=== PATIENT | male | born 2000 | race Caucasian/White ===

== ENCOUNTER 2020-07-30 15:25 | Emergency (ER) | payer BC, SELFPAY ==
[2020-07-30 15:37] VITALS: BP 106/50; PULSE 90; RESP 16; TEMP 36.9; O2SAT 100
--- NOTE | 2020-07-30 15:54 | ED.URI ---
HPI - URI/Sore Throat General Chief Complaint: Upper Respiratory Infection Stated Complaint: Sore throat Time Seen by Provider: 07/30/20 15:54 Source: patient and RN notes reviewed Mode of arrival: ambulatory Limitations: no limitations History of Present Illness HPI Narrative: 19 year old male who [facility] with complaints of nausea and vomiting last evening X2 with complaints of sore throat and chills today. Patient states that he has been able to drink but he is unable to tolerate eating. Patient states that pain to his throat is a 6/10. Patient denies any cough, denies any nasal congestion or drainage or any ear pain. Patient states that he has had strep throat in the past. MD elicited complaint: sore throat Pertinent past history: other (previous strep) Onset (ago): day(s) (1) Consistency: constant Severity: moderate Pain scale (0-10): 6 Description of mucous: clear Able to tolerate fluids by mouth: Yes Exacerbating factors: swallowing Relieving factors: nothing Associated symptoms: chills and sore throat Treatments prior to arrival: none Related Data Allergies Allergy/AdvReac Type Severity Reaction Status Date / Time No Known Allergies Allergy Verified 10/03/17 13:12 Review of Systems Review of Systems: Narrative: CONSTITUTIONAL: Denies fever, chills, or sweats. EYES: Denies visual changes, redness, or discharge. ENT: Denies rhinorrhea, congestion, positive sore throat, no otalgia. CARDIOVASCULAR: Denies chest pain, palpitations, or edema. RESPIRATORY: Denies cough or dyspnea. GASTROINTESTINAL: Denies abdominal pain, positive nausea, and vomiting, denies diarrhea. GENITOURINARY: Denies dysuria or hematuria. SKIN: Denies rash or itching. MUSCULOSKELETAL: Denies back pain, joint pain, or myalgia. NEUROLOGIC: Denies headache, numbness, or weakness. PSYCHIATRIC: Denies anxiety or depression. All systems reviewed & are unremarkable except as noted in HPI and below PMFSH Past Medical History Medical History (Updated 07/30/20 @ 19:50 by Jessica Velez NP) Nasal fracture Seasonal allergies Strep throat Social History Social History (Updated 07/30/20 @ 19:50 by Jessica Velez NP) Smoking status: Former smoker Tobacco type: smokeless tobacco Alcohol intake: never Living arrangements: with family Gender identity (if verbalized by the patient): Male Comments At time of signature, agree with nursing past medical, surgical, social history. There is no relevant family history pertinent to the presenting complaint Exam Narrative: Exam Narrative: GENERAL: Well-appearing, well-nourished, and in no acute distress. HEAD: Normocephalic, atraumatic. EYES: PERRLA and EOMI. ENT: Nares clear, no rhinorrhea or epistaxis. Mucous membranes moist. TMs normal with good light reflex, uvula red swollen, throat red and swollen, tonsils enlarged, no exudates or lesions noted NECK: Supple. Lymphadenopathy bilaterally CHEST: Clear to auscultation. No respiratory distress. HEART: Regular rate and rhythm. No murmur heard. Normal peripheral pulses. ABDOMEN: Soft, nontender, nondistended, normal active bowel sounds. EXTREMITIES: Normal range of motion. No edema. SKIN: Warm, dry, no rash. NEURO: No focal deficits. Alert and oriented x3. Course Vital Signs Vital signs: Vital Signs Temperature 36.9 C 07/30/20 15:37 Pulse Rate 90 07/30/20 15:37 Respiratory Rate 16 07/30/20 15:37 Blood Pressure 106/50 L 07/30/20 15:37 Pulse Oximetry 100 07/30/20 15:37 Temperature 36.9 C 07/30/20 15:37 Pulse Rate 90 07/30/20 15:37 Respiratory Rate 16 07/30/20 15:37 Blood Pressure 106/50 L 07/30/20 15:37 Pulse Oximetry 100 07/30/20 15:37 MDM - URI/Sore Throat Differential Diagnosis Differential diagnosis: Likely upper respiratory infection, pharyngitis and other (strep pharyngitis,tonsillitis) Medical Records Attestation: I reviewed the patient's medical records. Lab Data Attestation:
== END 2020-07-30 16:16 | disposition home or self-care (01) ==
PROVIDERS: Emergency Provider Registered Nurse; PCP Family Medicine Adolescent Medicine
DX: J03.90 Acute tonsillitis, unspecified (principal); Z87.891 Personal history of nicotine dependence
CPT/HCPCS: 87081; 87880; 99213; G0463

== ENCOUNTER 2023-12-31 05:36 | Emergency (ER) | payer BC, SELFPAY ==
[2023-12-31 05:37] VITALS: BP 119/77; PULSE 93; RESP 14; TEMP 36.8; O2SAT 100
[2023-12-31 06:20] VITALS: BP 120/78; PULSE 89; RESP 15; O2SAT 98
[2023-12-31 06:37] LABS: Alanine Aminotransferase 23 U/L (6-50); Albumin Level 4.6 g/dL (3.5-5.1); Alkaline Phosphatase 87 U/L (38-126); Anion Gap 9 mmol/L (8-16); Aspartate Amino Transferase 35 U/L (17-59); Bilirubin,Total 0.7 mg/dL (0.2-1.3); Blood Urea Nitrogen 13 mg/dL (9-20); Calcium 9.3 mg/dL (8.4-10.2); Carbon Dioxide 27 mmol/L (22-30); Chloride 101 mmol/L (98-107); Estimated CRCL calculation 93 ml/min; Estimated Glomerular Filt Rate > 60; Glucose 111 mg/dL (65-110); Lipase 77 U/L (23-300); Potassium 3.6 mmol/L (3.4-5.0); Sodium 137 mmol/L (137-145)
[2023-12-31 06:52] LABS: Basophils Percent Auto 0.3 % (0.2-1.2); Eosinophils Percent Auto 0.7 % (0-4.4); Hematocrit 43.3 % (42.0-52.0); Hemoglobin 14.7 g/dL (14.0-18.0); Immature Granulocyte Absolute 0.01 K/mm3 (0.00-0.031); Immature Granulocyte Percent A 0.2 % (0-0.5); Lymphocytes Absolute Auto 0.63 K/mm3 (0.9-3.2); Lymphocytes Percent Auto 10.3 % (18.3-44.2); Mean Corpuscular HGB Conc 33.9 g/dl (32-36); Mean Corpuscular Hemoglobin 28.7 pg (26-34); Mean Corpuscular Volume 84.4 fl (80-100); Mean Platelet Volume 10.8 fl (7.4-10.4); Monocytes Absolute Auto 0.6 K/mm3 (0.1-0.6); Monocytes Percent Auto 10.4 % (2.6-8.5); Neutrophils Absolute Auto 4.8 K/mm3 (1.3-6.7); Neutrophils Percent Auto 78.1 % (45.5-73.1); Platelet Count Result 199 k/mm3 (150-375); Red Blood Count 5.13 M/mm3 (4.6-6.20); White Blood Count 6.1 K/mm3 (4.5-10.0)
[2023-12-31 07:00] LABS: Influenza A QL RT-PCR Negative (Negative); Influenza B QL RT-PCR Negative (Negative); RSV RNA, RT-PCR Negative (Negative); SARS-CoV-2 RNA PCR Negative (Negative)
--- NOTE | 2023-12-31 07:20 | ED.ABDPAIN ---
HPI - Abdominal Pain General Chief Complaint: Abdominal Pain Stated Complaint: food poisoning Time Seen by Provider: 12/31/23 07:05 History of Present Illness HPI narrative: Patient is a healthy 23-year-old male here with multiple symptoms including nausea, vomiting, abdominal pain, headache. Patient notes that his symptoms began 3-4 days ago after eating out at a restaurant. He notes that he has had some epigastric abdominal pain as well as diarrhea. He has also been experiencing headache. This morning he was woken up out of sleep with multiple episodes of emesis. He denies any blood in his stool or vomit. He has had no episodes of vomiting since arriving to the emergency department and believes his abdominal pain is somewhat improving. No prior abdominal surgeries, no medical history that he is aware of. No other family members with similar symptoms. He has eaten at this restaurant many times before and has never had any issues with their food. Related Data Allergies Allergy/AdvReac Type Severity Reaction Status Date / Time No Known Allergies Allergy Verified 10/03/17 13:12 Review of Systems Review of Systems: All systems reviewed & are unremarkable except as noted in HPI and below PMFSH Past Medical History Medical History (Updated 12/31/23 @ 10:23 by Hope Jones MD) Nasal fracture Seasonal allergies Strep throat Social History Social History (Updated 07/30/20 @ 19:50 by Jessica Velez NP) Smoking status: Former smoker Tobacco type: smokeless tobacco Alcohol intake: never Living arrangements: with family Gender identity (if verbalized by the patient): Male Exam Narrative: GENERAL: Well-appearing, well-nourished, and in no acute distress. HEAD: Normocephalic, atraumatic. EYES: PERRLA and EOMI. ENT: Nares clear. Mucous membranes moist. NECK: Supple. CHEST: Clear to auscultation. No respiratory distress. HEART: Regular rate and rhythm. Normal peripheral pulses. ABDOMEN: Soft, nontender, nondistended. No rebound or guarding. Negative walter sign. EXTREMITIES: Normal range of motion. No edema. SKIN: Warm, dry, no rash. NEURO: No focal deficits. Alert and oriented x3. PSYCH: Normal mood and affect. Course Course Emergency Course: Chart review performed. Patient here for abdominal pain, diarrhea, H x3-4 days. Triage vitals normal. Patient seen evaluated, nontoxic appearing. Triage lab work unremarkable including a negative viral panel and negative UA. Patient is having symptomatic improvement. Will do Zofran and Bentyl for pain here in the department. Given his unremarkable workup and improving symptoms discussed whether he needs imaging or not. We will defer imaging at this time given patient's mild symptoms and normal workup. Patient re-evaluated. Patient has tolerated p.o. here in the emergency department. Had symptom improvement with Bentyl and Zofran. Will prescribe Levsin and Zofran for discharge. Advised close follow-up with his primary care doctor and returning to the emergency department should symptoms worsen. The results of pertinent diagnostic studies and exam findings were discussed. The patient?s provisional diagnosis and plan of care were discussed with the patient and present family. The patient and/or present family expressed understanding of the diagnosis and plan. The nurse was instructed to provide written instructions and appropriate follow-up information. The patient understands their need and responsibility to obtain additional follow-up as instructed. The risks of medications administered and prescribed were discussed with the patient and family present. Vital Signs Vital signs: Vital Signs Temperature 98.2 F 12/31/23 05:37 Pulse Rate 93 12/31/23 05:37 Respiratory Rate 14 12/31/23 05:37 Blood Pressure 119/77 12/31/23 05:37 Pulse Oximetry 100 12/31/23 05:37 Oxygen Delivery Room Air 12/31/23 05:37 Temperature 98.2 F
[2023-12-31 07:30] VITALS: BP 116/76; PULSE 85; RESP 14; O2SAT 98
[2023-12-31 07:32] LABS: Appearance Urine Clear (Clear); Bilirubin Urine Negative (Negative); Blood Urine Negative (Negative); Color Urine Yellow (Yellow); Glucose Urine UA Negative (Negative); Ketones Urine Negative (Negative); Leukocyte Esterase Ur Negative LEU/UL (Negative); Nitrate Urine Negative (Negative); Protein Urine Negative (Negative); Specific Grav Ur 1.011 (1.001-1.035); Urobilinogen Urine 0.2 mg/dL (<2.0)
[2023-12-31 07:41] LABS: Add Urine Microscopic? NO
[2023-12-31] MEDS: ACETAMINOPHEN 500 MG TABLET 1000 MG PO (09:30)
[2023-12-31] MEDS: PANTOPRAZOLE 40 MG TABLET PO (09:30)
[2023-12-31] MEDS: ONDANSETRON HCL ODT 4 MG TABLET PO (09:31)
[2023-12-31] MEDS: DICYCLOMINE HCL INJ 20 MG/2 ML VIAL IM (09:32)
[2023-12-31 09:34] VITALS: BP 104/75; PULSE 77; RESP 14; O2SAT 98
[2023-12-31 10:24] VITALS: BP 104/66; PULSE 71; RESP 14; O2SAT 99
[2023-12-31 11:17] VITALS: BP 109/67; PULSE 69; RESP 13; TEMP 36.4; O2SAT 100
== END 2023-12-31 11:19 | disposition home or self-care (01) ==
PROVIDERS: Emergency Medicine; Emergency Provider Student in an Organized Health Care Education/Training Program; PCP Family Medicine Adolescent Medicine
DX: R11.2 Nausea with vomiting, unspecified (principal); R19.7 Diarrhea, unspecified; R10.13 Epigastric pain; Z20.822 Contact with and (suspected) exposure to COVID-19; Z87.891 Personal history of nicotine dependence
CPT/HCPCS: 36415; 80053; 81003; 83690; 85025; 87637; 96372; 99283; A9270; J0500